=== PATIENT | male | born 1985 | race Caucasian/White ===

== ENCOUNTER → 2025-02-17 11:50 | Outpatient (BNVA) | payer OTHER, SELFPAY | PROVIDERS: Visit Provider Psychiatry & Neurology Neurology | DX: I63.9 Cerebral infarction, unspecified (principal); G45.9 Transient cerebral ischemic attack, unspecified | CPT/HCPCS: 36415; 82306; 82607; 82746; 83090; 83921; 85210; 85300; 85303; 85306; 85613; 85730; 86147 ==